=== PATIENT | male | born 1980 | race Asian ===

== ENCOUNTER 2019-05-01 02:28 | Emergency (ER) | payer OTHER ==
[~2019-05-01] VITALS: Ht 165.1 cm; Wt 131.5 kg
[2019-05-01 02:47] VITALS: BP 135/89
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
--- NOTE | 2019-05-01 02:56 | NUR ---
ED Nurse Note: ERMD at bedside.
[2019-05-01] MEDS ORDERED: Tetanus/Diptheria/Pertussis IM ONE (03:00)
[2019-05-01] MEDS ORDERED: Acetaminophen 500mg (ES) tab ORAL ONE (03:00)
--- NOTE | 2019-05-01 03:01 | NUR ---
ED Nurse Note: Pt was taken for CT.
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
--- NOTE | 2019-05-01 03:22 | NUR ---
ED Nurse Note: Pt came back from CT.
[2019-05-01] MEDS ORDERED: NAPROXEN250 MG ORAL (04:56)
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
[2019-05-01 06:05] VITALS: BP 135/89
--- NOTE | 2019-05-01 06:05 | NUR ---
ED Nurse Note: Pt cleared by ERMD for discharge. DC instructions/prescription was given and explained to pt and verbalized understanding of teachings. All medical deviecs such as ID band removed. Pt is AAO x4, ambulatory and left with all personal belongings.
== END 2019-05-01 06:05 | disposition home or self-care (01) ==
LOC: EMR 03:00
DX: S06.0X0A Concussion without loss of consciousness, initial encounter (principal); Y04.2XXA Assault by strike against or bumped into by another person, initial encounter; Y93.89 Activity, other specified; Y92.9 Unspecified place or not applicable
CPT/HCPCS: 70450; 70486; 72125; 90471; 90715; Z7502; 99284